=== PATIENT | male | born 2000 | race Two or more races ===

== ENCOUNTER 2023-02-22 18:21 | Emergency (ER) | payer SELFPAY ==
[~2023-02-22] VITALS: Ht 188 cm; Wt 87.0 kg
[2023-02-22 18:53] VITALS: BP 143/77
== END 2023-02-22 20:20 | disposition home or self-care (01) ==
LOC: ER 18:21 → EDBD 18:21 → ER 20:20
DX: S00.01XA Abrasion of scalp, initial encounter (principal); X58.XXXA Exposure to other specified factors, initial encounter; Y93.89 Activity, other specified; Y92.89 Other specified places as the place of occurrence of the external cause; Y99.8 Other external cause status; G89.11 Acute pain due to trauma
CPT/HCPCS: 99281